=== PATIENT | female | born 1940 | race Caucasian/White ===

== ENCOUNTER 2017-03-18 21:50 | Emergency (ER) | payer MEDICARE, OTHER ==
[2017-03-18 21:56] VITALS: BP 205/100; PULSE 130; RESP 20; TEMP 98.4; O2SAT 98
[2017-03-18] MEDS ORDERED: ROSU5 PO (22:24)
[2017-03-18] MEDS ORDERED: GLIM2TAB PO (22:24)
[2017-03-18] MEDS ORDERED: HYDR-3516 PO (22:24)
[2017-03-18] MEDS ORDERED: URSO300C2 PO (22:24)
[2017-03-18] MEDS ORDERED: NEXI20CA PO (22:24)
[2017-03-18] MEDS ORDERED: AMLO10TA2 PO (22:24)
[2017-03-18] MEDS ORDERED: BENA40TA PO (22:24)
[2017-03-18] MEDS ORDERED: MORPHINE SULFATE 2 MG/ML INJ IV PUSH ONE (22:30)
[2017-03-18] MEDS ORDERED: ONDANSETRON HCL 4 MG/2 ML VIAL IV PUSH ONE (22:30)
[2017-03-18 22:32] VITALS: BP 200/134; PULSE 118
[2017-03-18] MEDS ORDERED: diphenhydrAMINE HCL 50 MG/ML VIAL IV PUSH ONE (22:45)
[2017-03-18 22:48] LABS: AUTOMATED NEUTROPHIL # 12.3 TH/MM3 (1.8-7.7); BASOPHIL # 0.1 TH/MM3 (0-0.2); BASOPHIL % 0.8 % (0.0-2.0); HEMATOCRIT 48.2 % (35.0-46.0); HEMOGLOBIN 15.8 GM/DL (11.6-15.3); LYMPHOCYTE # 1.6 TH/MM3 (1.0-4.8); MEAN CELL VOLUME 75.8 FL (80.0-100.0); MEAN CORPUSCULAR HEMOGLOBIN 24.8 PG (27.0-34.0); MEAN CORPUSCULAR HGB CONC 32.8 % (32.0-36.0); MEAN PLATELET VOLUME 7.5 FL (7.0-11.0); MONO % 3.4 % (0.0-8.0); MONOCYTE # 0.5 TH/MM3 (0-0.9); NEUT % 84.8 % (16.0-70.0); PLATELET COUNT 404 TH/MM3 (150-450); RED BLOOD COUNT 6.36 MIL/MM3 (4.00-5.30); RED CELL DISTRIBUTION WIDTH 15.9 % (11.6-17.2); WHITE BLOOD COUNT 14.5 TH/MM3 (4.0-11.0)
[2017-03-18 22:52] LABS: CHLORIDE 100 MEQ/L (98-107); SODIUM (NA) 134 MEQ/L (136-145)
[2017-03-18 22:55] LABS: CALCIUM 9.4 MG/DL (8.5-10.1)
[2017-03-18 22:56] LABS: ALBUMIN 3.7 GM/DL (3.4-5.0); BLOOD UREA NITROGEN 15 MG/DL (7-18); GLUCOSE,RANDOM 170 MG/DL (74-106); PROTHROMBIN TIME - PATIENT 10.6 SEC (9.8-11.6)
[2017-03-18 22:58] LABS: ALT (GPT) 18 U/L (10-53)
[2017-03-18 22:59] LABS: AST (GOT) 18 U/L (15-37); GLOMERULAR FILTRATION RATE 40 ML/MIN (>89)
[2017-03-18 23:00] LABS: TOTAL BILIRUBIN ADULT 0.4 MG/DL (0.2-1.0); TOTAL PROTEIN 8.9 GM/DL (6.4-8.2)
[2017-03-18 23:01] LABS: ALKALINE PHOSPHATASE 167 U/L (45-117)
--- NOTE | 2017-03-18 23:31 | RADRPT ---
EXAM DATE/TIME: 03/18/2017 22:54 [place] COMPARISON: No previous studies available for comparison. INDICATIONS : Cephalgia. RADIATION DOSE: 59.08 CTDIvol (mGy) MEDICAL HISTORY : None SURGICAL HISTORY : None. ENCOUNTER: Initial ACUITY: 1 week PAIN SCALE: 9/10 LOCATION: Bilateral cranial TECHNIQUE: Multiple contiguous axial images were obtained of the head. Using automated exposure control and adj ustment of the mA and/or kV according to patient size, radiation dose was kept as low as reasonably a chievable to obtain optimal diagnostic quality images. DICOM format image data is available electro nically for review and comparison. FINDINGS: CEREBRUM: There is mild generalized atrophy with mild to moderate periventricular white matter low attenuation. No evidence of midline shift, mass lesion, hemorrhage or acute infarction. No extra-axial fluid co llections are seen. POSTERIOR FOSSA: The cerebellum and brainstem are intact. The 4th ventricle is midline. The cerebellopontine angle i s unremarkable. EXTRACRANIAL: Visualized sinuses are clear. SKULL: The calvaria is intact. No evidence of skull fracture. CONCLUSION: 1. No acute intracranial abnormality is identified. 2. Chronic changes include generalized atrophy and periventricular white matter change characteristic of chronic microvascular ischemia. Tejas Ziegler MD on March 18, 2017 at 23:27 Board Certified Radiologist. This report was verified electronically.
[2017-03-18 23:36] VITALS: BP 154/71; PULSE 89; RESP 14; O2SAT 94
[2017-03-18] MEDS ORDERED: TRAM50 PO (23:47)
[2017-03-18] MEDS ORDERED: BUTA1CAP PO (23:47)
--- NOTE | 2017-03-18 23:47 | PD ---
HPI Chief Complaint: Headache Time Seen by Provider: 22:15 Travel History International Travel<30 days: No Contact w/Intl Traveler<30days: No Traveled to known affect area: No History of Present Illness HPI 76 years old female complains headache and nausea vomiting. Patient states that she has persistent headache for the past 3 weeks. Patient states that headache is aching headache diffuse over the head. Patient denies any visual change. Patient denies any neck pain. Patient denies any chest pain or shortness of breath. Patient denies abdominal pain. Patient denies any focal weakness or numbness of extremity. Patient denies any head injury. Patient denies any fever chills. Patient states the headache is worse today. Patient states that she started having nausea vomiting today also. Patient has history hypertension and diabetes and has been taking medications as directed. On a scale of 1-10 the headache is a 5. PFSH Past Medical History Heart Rhythm Problems: Yes Cancer: Yes (LEFT KIDNEY) High Cholesterol: Yes Diabetes: Yes Patient Takes Glucophage: No GERD: Yes Hypertension: Yes Tetanus Vaccination: Unknown Influenza Vaccination: Yes ?: Not Past Surgical History Tonsillectomy: Yes Other Surgery: Yes (LEFT NEPHRECTOMY) Social History Alcohol Use: No Tobacco Use: No Substance Use: No Allergies-Medications (Allergen,Severity, Reaction): Coded Allergies: No Known Allergies (Verified Allergy, Unknown, 03/18/17) Reported Meds & Prescriptions Reported Meds & Active Scripts Active Reported Hydrocodone-Acetaminophen 5-325 mg Tab 1 Tab PO Q4H PRN Nexium (Esomeprazole DR) 20 Mg Capdr 20 Mg PO DAILY Glimepiride 2 Mg Tab 2 Mg PO DAILY Take with breakfast or first main meal Crestor (Rosuvastatin Calcium) 5 Mg Tab 5 Mg PO DAILY Amlodipine (Amlodipine Besylate) 10 Mg Tab 10 Mg PO DAILY Ursodiol 300 Mg Cap 300 Mg PO BID Benazepril (Benazepril HCl) 40 Mg Tab 40 Mg PO BID Review of Systems General / Constitutional: No: Fever Eyes: No: Visual changes HENT: Positive: Headaches Cardiovascular: No: Chest Pain or Discomfort Respiratory: No: Shortness of Breath Gastrointestinal: Positive: Nausea, Vomiting, No: Abdominal Pain Genitourinary: No: Dysuria Musculoskeletal: No: Pain Skin: No Rash Neurologic: No: Weakness Psychiatric: No: Depression Endocrine: No: Polydipsia Hematologic/Lymphatic: No: Easy Bruising Physical Exam Narrative GENERAL: Well-nourished, well-developed patient. SKIN: Focused skin assessment warm/dry. HEAD: Normocephalic. EYES: No scleral icterus. No injection or drainage. Pupils 2 mm equal reactive. NECK: Supple, trachea midline. No JVD or lymphadenopathy. No meningismus CARDIOVASCULAR: Regular rate and rhythm without murmurs, gallops, or rubs. RESPIRATORY: Breath sounds equal bilaterally. No accessory muscle use. GASTROINTESTINAL: Abdomen soft, non-tender, nondistended. MUSCULOSKELETAL: No cyanosis, or edema. BACK: Nontender without obvious deformity. No CVA tenderness. Neurologic exam: Patient awake and alert oriented 3. No obvious focal neurological deficit. Data Data Last Documented VS Vital Signs Date Time Temp Pulse Resp B/P (MAP) Pulse Ox O2 Delivery O2 Flow Rate FiO2 03/18/17 23:36 89 14 154/71 (98) 94 Room Air 03/18/17 21:56 98.4 Orders Orders Morphine Inj (Morphine Inj) (03/18/17 22:30) Ondansetron Inj (Zofran Inj) (03/18/17 22:30) Electrocardiogram (03/18/17 22:22) Complete Blood Count With Diff (03/18/17 22:22) Comprehensive Metabolic Panel (03/18/17 22:22) Prothrombin Time / Inr (Pt) (03/18/17 22:22) Act Partial Throm Time (Ptt) (03/18/17 22:22) Urinalysis - C+S If Indicated (03/18/17 22:22) Thyroid Stimulating Hormone (03/18/17 22:22) Ct Brain W/O Iv Contrast(Rout) (03/18/17 22:22) Iv Access Insert/Monitor (03/18/17 22:22) Ecg Monitoring (03/18/17 22:22) Oximetry (03/18/17 22:22) Diphenhydramine Inj (Benadryl Inj) (03/18/17 22:45) Labs Laboratory Tests Test 03/18/17 22:25 White Blood Count 14.5 TH/MM3 Red Blood Count 6.36 MIL/MM3 Hemoglobin 15.8 GM/DL Hematocrit 48.2 % Mean Corpuscular Volume 75.8 FL Mean Corpuscular Hemoglobin 24.8 PG Mean Corpuscular Hemoglobin Concent 32.8 % Red Cell Distribution Width 15.9 % Platelet Count 404 TH/MM3 Mean Platelet Volume 7.5 FL Neutrophils (%) (Auto) 84.8 % Lymphocytes (%) (Auto) 11.0 % Monocytes (%) (Auto) 3.4 % Eosinophils (%) (Auto) 0.0 % Basophils (%) (Auto) 0.8 % Neutrophils # (Auto) 12.3 TH/MM3 Lymphocytes # (Auto) 1.6 TH/MM3 Monocytes # (Auto) 0.5 TH/MM3 Eosinophils # (Auto) 0.0 TH/MM3 Basophils # (Auto) 0.1 TH/MM3 CBC Comment AUTO DIFF Prothrombin Time 10.6 SEC Prothromb Time International Ratio 1.0 RATIO Activated Partial Thromboplast Time 25.2 SEC Blood Urea Nitrogen 15 MG/DL Creatinine 1.30 MG/DL Random Glucose 170 MG/DL Total Protein 8.9 GM/DL Albumin 3.7 GM/DL Calcium Level 9.4 MG/DL Alkaline Phosphatase 167 U/L Aspartate Amino Transf (AST/SGOT) 18 U/L Alanine Aminotransferase (ALT/SGPT) 18 U/L Total Bilirubin 0.4 MG/DL Sodium Level 134 MEQ/L Potassium Level 3.7 MEQ/L Chloride Level 100 MEQ/L Carbon Dioxide Level 24.0 MEQ/L Anion Gap 10 MEQ/L Estimat Glomerular Filtration Rate 40 ML/MIN Thyroid Stimulating Hormone 3rd Gen 1.420 uIU/ML MDM Medical Decision Making Medical Screen Exam Complete: Yes Emergency Medical Condition: Yes Differential Diagnosis Differential diagnosis including tension headache, cluster headache, migraine headache, uncontrolled hypertension. Narrative Course 76 years old female with headache, nausea vomiting, tachycardia, elevated blood pressure. History of hypertension. Morphine 2 mg IV. Zofran 4 mg IV. Benadryl 25 mg IV. 23:44 PM. Pulse stabilized, blood pressure stabilized and patient's feeling much better with headache. Diagnosis Primary Impression: Cephalgia Qualified Codes: R51 - Headache Patient Instructions: General Instructions Additional Instructions: Take medications as needed for headache. Follow-up with neurologist and personal physician if persistent problem. Check blood pressure daily. Return if worse. Med/Other Pt SpecificInfo: Prescription(s) given Scripts Pfofkfwoxo-Atifodvnszkaa-Etpsihgw (Fioricet) 50-300-40 Mg Cap 1-2 CAP PO Q6H Y for HEADACHE, #20 CAP 0 Refills Prov: Daron Breaux MD 03/18/17 Tramadol (Ultram) 50 Mg Tab 50 MG PO Q6H Y for HEADACHE, #20 TAB 0 Refills Prov: Daron Breaux MD 03/18/17 Disposition: 01 DISCHARGE HOME Condition: Stable Daron Breaux MD Mar 18, 2017 23:47
--- NOTE | 2017-03-19 14:32 | EKG ---
Date Performed: 03/18/2017 Time Performed: 22:45:54 PTAGE: 76 years EKG: SINUS TACHYCARDIA LOW QRS VOLTAGE IN PRECORDIAL LEADS ABNORMAL RHYTHM ECG PREVIOUS TRACING : 07/23/2006 08.41 DOCTOR: Brian Arteaga Interpretating Date/Time 03/19/2017 14:29:49
== END 2017-03-19 00:40 | disposition home or self-care (01) ==
LOC: PHED 21:50
DX: R51 Headache (principal); R00.0 Tachycardia, unspecified; E78.00 Pure hypercholesterolemia, unspecified; E11.9 Type 2 diabetes mellitus without complications; I10 Essential (primary) hypertension; K21.9 Gastro-esophageal reflux disease without esophagitis; Z85.528 Personal history of other malignant neoplasm of kidney; Z79.84 Long term (current) use of oral hypoglycemic drugs; Z79.899 Other long term (current) drug therapy
CPT/HCPCS: 70450; 80053; 84443; 85025; 85610; 85730; 93005; 96374; 96375; 99285; J1200; J2270; J2405

== ENCOUNTER 2017-07-20 21:25 | Emergency (ER) | payer MEDICARE ==
[~2017-07-20] VITALS: Ht 162.6 cm; Wt 84.5 kg
[~2017-07-20 21:25] MED LIST: AMLO10TA2 PO; BENA40TA PO; BUTA1CAP PO; GLIM2TAB PO; HYDR-3516 PO; NEXI20CA PO; ROSU5 PO; TRAM50 PO; URSO300C2 PO
[2017-07-20 21:32] VITALS: BP 232/130; PULSE 90; RESP 20; TEMP 98.8; O2SAT 95
--- NOTE | 2017-07-20 22:15 | PD ---
HPI Chief Complaint: GI Complaint Time Seen by Provider: 21:58 Travel History International Travel<30 days: No Contact w/Intl Traveler<30days: No Traveled to known affect area: No History of Present Illness HPI The patient was seen and examined in the presence of the nurse. This patient had a bowel movement 2 hours ago when she went to nype she noticed some bright red blood. No abdominal pain or presyncopal symptoms. Symptom severity is mild. She does have hypertension and her initial blood pressure was quite elevated. We will reassess it. No headache or chest pain. Symptoms have no alleviating factors. Takes no blood thinners. No history of GI bleed. No exacerbating factors. PFSH Past Medical History Heart Rhythm Problems: Yes Cancer: Yes (LEFT KIDNEY) High Cholesterol: Yes Diabetes: Yes Patient Takes Glucophage: Yes Diminished Hearing: No GERD: Yes Hypertension: Yes Tetanus Vaccination: Unknown Influenza Vaccination: Yes ?: Not Menopausal: Yes Past Surgical History Tonsillectomy: Yes Other Surgery: Yes (LEFT NEPHRECTOMY) Social History Alcohol Use: No Tobacco Use: No Substance Use: No Allergies-Medications (Allergen,Severity, Reaction): Coded Allergies: No Known Allergies (Verified Allergy, Unknown, 07/20/17) Reported Meds & Prescriptions Reported Meds & Active Scripts Active Reported Nexium (Esomeprazole DR) 20 Mg Capdr 20 Mg PO DAILY Glimepiride 2 Mg Tab 2 Mg PO DAILY Take with breakfast or first main meal Crestor (Rosuvastatin Calcium) 5 Mg Tab 5 Mg PO DAILY Ursodiol 300 Mg Cap 300 Mg PO BID Benazepril (Benazepril HCl) 40 Mg Tab 40 Mg PO BID Review of Systems General / Constitutional: No: Fever Eyes: No: Visual changes HENT: No: Headaches Cardiovascular: No: Chest Pain or Discomfort Respiratory: No: Shortness of Breath Gastrointestinal: Positive: Hematochezia, No: Abdominal Pain Genitourinary: No: Dysuria Musculoskeletal: No: Pain Skin: No Rash Neurologic: No: Weakness Psychiatric: No: Depression Endocrine: No: Polydipsia Hematologic/Lymphatic: No: Easy Bruising Physical Exam Narrative GENERAL: Well-nourished, well-developed patient in no apparent distress. SKIN: Focused skin assessment reveals no rash and nodules. Skin is Warm and dry. HEAD: Atraumatic. Normocephalic. EYES: Pupils equal and round. No scleral icterus. No injection or drainage. ENT: No nasal bleeding or discharge. Mucous membranes pink and moist. NECK: Trachea midline. No JVD. CARDIOVASCULAR: Regular rate and rhythm. No murmur appreciated. RESPIRATORY: No accessory muscle use. Clear to auscultation. Breath sounds equal bilaterally. GASTROINTESTINAL: Abdomen soft, non-tender, nondistended. Hepatic and splenic margins not palpable. MUSCULOSKELETAL: No obvious deformities. No clubbing. No cyanosis. No edema. NEUROLOGICAL: Awake and alert. No obvious cranial nerve deficits. Motor grossly within normal limits. Normal speech. PSYCHIATRIC: Appropriate mood and affect; insight and judgment normal. Rectal: Does have a external hemorrhoid. There is some dried blood around the anal opening. No active hemorrhaging. No obvious fissure Data Data Last Documented VS Vital Signs Date Time Temp Pulse Resp B/P (MAP) Pulse Ox O2 Delivery O2 Flow Rate FiO2 07/20/17 22:23 100 18 249/120 (163) 100 Room Air 07/20/17 21:32 98.8 Orders Orders Iv Access Insert/Monitor (07/20/17 22:07) Complete Blood Count With Diff (07/20/17 22:07) Basic Metabolic Panel (Bmp) (07/20/17 22:44) Prothrombin Time / Inr (Pt) (07/20/17 22:44) Act Partial Throm Time (Ptt) (07/20/17 22:44) Labetalol Inj (Trandate Inj) (07/20/17 22:45) Labs Laboratory Tests Test 07/20/17 22:30 [facility] Medical Decision Making Medical Screen Exam Complete: Yes Emergency Medical Condition: Yes Medical Record Reviewed: Yes Differential Diagnosis Hemorrhoidal bleed, AV malformation, GI tumor, diverticulosis Narrative Course I have reviewed the patient's electronic medical record. IV placed and labs sent Initial blood pressure showed significant accelerated hypertension. Recheck of the BP reveals a blood pressure of 249 systolic I have given her 20 mg IV labetalol Case checked out to Dr. Napoles to assist with disposition Ramana Fam MD Jul 20, 2017 22:15
[2017-07-20 22:23] VITALS: BP 249/120; PULSE 100; RESP 18; O2SAT 100
[2017-07-20] MEDS ORDERED: LABETALOL HCL 100 MG/20 ML VIAL IV PUSH ONE (22:45)
[2017-07-20 22:46] LABS: AUTOMATED NEUTROPHIL # 6.6 TH/MM3 (1.8-7.7); BASOPHIL # 0.1 TH/MM3 (0-0.2); BASOPHIL % 0.5 % (0.0-2.0); EOSINOPHIL # 0.3 TH/MM3 (0-0.4); EOSINOPHIL % 2.4 % (0.0-4.0); HEMATOCRIT 43.3 % (35.0-46.0); HEMOGLOBIN 14.4 GM/DL (11.6-15.3); LYMPHOCYTE # 2.6 TH/MM3 (1.0-4.8); MEAN CORPUSCULAR HEMOGLOBIN 25.4 PG (27.0-34.0); MEAN CORPUSCULAR HGB CONC 33.4 % (32.0-36.0); MEAN PLATELET VOLUME 7.7 FL (7.0-11.0); MONO % 7.3 % (0.0-8.0); MONOCYTE # 0.8 TH/MM3 (0-0.9); NEUT % 64.8 % (16.0-70.0); PLATELET COUNT 362 TH/MM3 (150-450); RED CELL DISTRIBUTION WIDTH 15.9 % (11.6-17.2); WHITE BLOOD COUNT 10.4 TH/MM3 (4.0-11.0)
--- NOTE | 2017-07-20 23:07 | PD ---
Physical Exam Date Seen by Provider: Jul 20, 2017 Time Seen by Provider: 23:06 Narrative Accepted in transfer of care from Dr. Matthews Data Data Last Documented VS Vital Signs Date Time Temp Pulse Resp B/P (MAP) Pulse Ox O2 Delivery O2 Flow Rate FiO2 07/21/17 01:37 76 18 202/118 (146) 97 Room Air 07/20/17 21:32 98.8 Orders Orders Iv Access Insert/Monitor (07/20/17 22:07) Complete Blood Count With Diff (07/20/17 22:07) Basic Metabolic Panel (Bmp) (07/20/17 22:44) Prothrombin Time / Inr (Pt) (07/20/17 22:44) Act Partial Throm Time (Ptt) (07/20/17 22:44) Labetalol Inj (Trandate Inj) (07/20/17 22:45) Clonidine (Catapres) (07/21/17 00:30) Hydralazine Inj (Apresoline Inj) (07/21/17 01:45) Labs Laboratory Tests Test 07/20/17 22:30 White Blood Count 10.4 TH/MM3 Red Blood Count 5.70 MIL/MM3 Hemoglobin 14.4 GM/DL Hematocrit 43.3 % Mean Corpuscular Volume 76.0 FL Mean Corpuscular Hemoglobin 25.4 PG Mean Corpuscular Hemoglobin Concent 33.4 % Red Cell Distribution Width 15.9 % Platelet Count 362 TH/MM3 Mean Platelet Volume 7.7 FL Neutrophils (%) (Auto) 64.8 % Lymphocytes (%) (Auto) 25.0 % Monocytes (%) (Auto) 7.3 % Eosinophils (%) (Auto) 2.4 % Basophils (%) (Auto) 0.5 % Neutrophils # (Auto) 6.6 TH/MM3 Lymphocytes # (Auto) 2.6 TH/MM3 Monocytes # (Auto) 0.8 TH/MM3 Eosinophils # (Auto) 0.3 TH/MM3 Basophils # (Auto) 0.1 TH/MM3 CBC Comment DIFF FINAL Differential Comment Prothrombin Time 9.8 SEC Prothromb Time International Ratio 1.0 RATIO Activated Partial Thromboplast Time 24.3 SEC Blood Urea Nitrogen 22 MG/DL Creatinine 1.50 MG/DL Random Glucose 174 MG/DL Calcium Level 9.2 MG/DL Sodium Level 143 MEQ/L Potassium Level 4.0 MEQ/L Chloride Level 109 MEQ/L Carbon Dioxide Level 26.5 MEQ/L Anion Gap 8 MEQ/L Estimat Glomerular Filtration Rate 34 ML/MIN [facility] Medical Record Reviewed: Yes Supervised Visit with BART: No Interpretation(s) CBC & BMP Diagram 07/20/17 22:30 Calcium Level 9.2 Differential Diagnosis Accepted in transfer of care from Dr. Matthews please refer to his dictation Narrative Course Accepted in transfer of care from Dr. Matthews; follow up pending labs BP response to medication and disposition Patient administered labetalol 20 mg iv without significant BP response --now reports she is prescribed clonidine but has not been taking it --clonidine 0.1 mg po administered Diagnosis Primary Impression: Hemorrhoids Qualified Codes: K64.9 - Unspecified hemorrhoids Additional Impression: Poorly-controlled hypertension Referrals: Primary Care Physician 2 days Patient Instructions: General Instructions Additional Instruction: Follow-up with primary care provider call office on Saturday to schedule follow- up appointment Take clonidine as needed for blood pressure greater than 180/95 mmHg Continue current medications as presently prescribed Return to the emergency department for any concerns or change in condition Use) as prescribed for hemorrhoidal swelling pain and/or bleeding Increase fluid hydration Med/Other Pt SpecificInfo: Prescription(s) given Scripts Clonidine (Clonidine) 0.1 Mg Tab 0.1 MG PO Q12HR Y for SBP>180, DBP>95, #6 TAB 0 Refills Prov: Karma Napoles MD 07/21/17 Hydrocortisone-Pramoxine Rectal (Analpram-Hc Rectal) 1-1% Cream 1 APPLIC RECTAL QID Y for ITCHING/INFLAMMATION, #30 GM 0 Refills Prov: Karma Napoles MD 07/21/17 Disposition: 01 DISCHARGE HOME Condition: Stable Karma Napoles MD Jul 20, 2017 23:07
[2017-07-20 23:11] LABS: CALCIUM 9.2 MG/DL (8.5-10.1)
[2017-07-20 23:12] LABS: BICARBONATE 26.5 MEQ/L (21.0-32.0)
[2017-07-20 23:15] LABS: CREATININE 1.5 MG/DL (0.50-1.00)
[2017-07-20 23:40] LABS: PROTHROMBIN TIME - PATIENT 9.8 SEC (9.8-11.6)
[2017-07-20 23:45] VITALS: BP 220/113; PULSE 74; RESP 18; O2SAT 97
[2017-07-21 00:25] VITALS: BP 222/112; PULSE 78; RESP 18; O2SAT 97
[2017-07-21] MEDS ORDERED: cloNIDine HCL 0.1 MG TAB PO ONE (00:30)
[2017-07-21] MEDS ORDERED: ANAL1CRE2 RECTAL (00:33)
[2017-07-21 01:12] VITALS: BP 203/118; PULSE 78; RESP 18; O2SAT 97
[2017-07-21 01:37] VITALS: BP 202/118; PULSE 76; RESP 18; O2SAT 97
[2017-07-21] MEDS ORDERED: hydrALAZINE HCL 20 MG/ML VIAL IV PUSH ONE (01:45)
[2017-07-21 02:18] VITALS: BP 188/102; PULSE 78; RESP 18; O2SAT 97
[2017-07-21] MEDS ORDERED: CLON0.1T PO (02:20)
== END 2017-07-21 02:30 | disposition home or self-care (01) ==
LOC: PHED 21:25
DX: K64.9 Unspecified hemorrhoids (principal); I10 Essential (primary) hypertension; E11.9 Type 2 diabetes mellitus without complications; E78.00 Pure hypercholesterolemia, unspecified
CPT/HCPCS: 80048; 85025; 85610; 85730; 96374; 96375; 99284; J0360